=== PATIENT | female | born 1995 | race Caucasian/White ===

== ENCOUNTER 2019-12-18 21:36 | Emergency (ER) | payer BC ==
[~2019-12-18] VITALS: Ht 160 cm; Wt 50.9 kg
[2019-12-18 21:36] VITALS: BP 131/92
[2019-12-18] MEDS ORDERED: ORPH-16 PO (22:08)
--- NOTE | 2019-12-18 22:09 | PHYS DOC ---
Past History Past Medical History: Diabetes Past Surgical History: Appendectomy Alcohol Use: None General Adult EDM: Chief Complaint: BACK PAIN OR INJURY HPI: HPI: Patient is a [age] year old [sex] who presents with [] Review of Systems: Review of Systems: Constitutional: Denies fever or chills Eyes: Denies change in visual acuity HENT: Denies nasal congestion or sore throat Respiratory: Denies cough or shortness of breath Cardiovascular: Denies chest pain or edema GI: Denies abdominal pain, nausea, vomiting, bloody stools or diarrhea : Denies dysuria Musculoskeletal: Denies back pain or joint pain Integument: Denies rash Neurologic: Denies headache, focal weakness or sensory changes Endocrine: Denies polyuria or polydipsia Lymphatic: Denies swollen glands Psychiatric: Denies depression or anxiety Heart Score: Risk Factors: Risk Factors: DM, Current or recent (<one month) smoker, HTN, HLP, family history of CAD, obesity. Risk Scores: Score 0 - 3: 2.5% MACE over next 6 weeks - Discharge Home Score 4 - 6: 20.3% MACE over next 6 weeks - Admit for Clinical Observation Score 7 - 10: 72.7% MACE over next 6 weeks - Early Invasive Strategies Allergies: Allergies: Allergies Coded Allergies Type Severity Reaction Last Updated Verified Latex, Natural Rubber Allergy Severe Anaphylaxis 12/18/19 Yes azithromycin Allergy Severe Anaphylaxis 12/18/19 Yes meloxicam Allergy Severe Anaphylaxis 12/18/19 Yes Physical Exam: PE: Constitutional: Well developed, well nourished, no acute distress, non-toxic appearance. [] HENT: Normocephalic, atraumatic, bilateral external ears normal, oropharynx moist, no oral exudates, nose normal. [] Eyes: PERRLA, EOMI, conjunctiva normal, no discharge. [] Neck: Normal range of motion, no tenderness, supple, no stridor. [] Cardiovascular:Heart rate regular rhythm, no murmur [] Lungs & Thorax: Bilateral breath sounds clear to auscultation [] Abdomen: Bowel sounds normal, soft, no tenderness, no masses, no pulsatile masses. [] Skin: Warm, dry, no erythema, no rash. [] Back: No tenderness, no CVA tenderness. [] Extremities: No tenderness, no cyanosis, no clubbing, ROM intact, no edema. [] Neurologic: Alert and oriented X 3, normal motor function, normal sensory function, no focal deficits noted. [] Psychologic: Affect normal, judgement normal, mood normal. [] Current Patient Data: Labs: Laboratory Tests Test 12/18/19 22:05 POC Urine HCG, Qualitative hcg negative (Negative) Vital Signs: Vital Signs Date Time Temp Pulse Resp B/P (MAP) Pulse Ox O2 Delivery O2 Flow Rate FiO2 12/18/19 21:36 98.7 83 16 131/92 (105) 98 Room Air EKG: EKG: [] Radiology/Procedures: Radiology/Procedures: [] Course & Med Decision Making: Course & Med Decision Making Pertinent Labs and Imaging studies reviewed. (See chart for details) [] Dragon Disclaimer: Dragon Disclaimer: This electronic medical record was generated, in whole or in part, using a voice recognition dictation system. Departure Departure: Impression: Primary Impression: Back pain Qualified Codes: M54.41 - Lumbago with sciatica, right side Disposition: HOME/RESIDENCE PRIOR TO ADM Condition: STABLE Referrals: SHANTEL ARCHIBALD MD (PCP) Patient Instructions: Back Pain, Adult, [id number] Additional Instructions: Take over the counter Tylenol and/or Ibuprofen for pain or discomfort. ICE area 20 min on then leave off for next 20 mins. Repeat several times daily as needed for next few days. Call Patrick Dallas M.D. (pain management) for further evaluation and treatment. Call and make an appointment to be seen in next 3-5 days as needed. [id number] [facility], [address] [place], [place] [address] Scripts Orphenadrine Citrate (ORPHENADRINE CITRATE) 100 Mg Tablet.er 1 TAB PO BID PRN for MUSCLE PAIN, #14 TAB 0 Refills Prov: SALENA TANNER DO 12/18/19 Justification of Admission: Justification of Admission: Justification of Admission Dx: N/A SALENA TANNER DO Dec 18, 2019 22:09
[2019-12-18] MEDS ORDERED: ORPHENADRINE CITRATE 60 MG/2 ML VIAL. IM ONE (22:15)
[2019-12-18] MEDS ORDERED: DEXAMETHASONE 4 MG TABLET PO ONE (22:15)
[2019-12-18] MEDS ORDERED: HYDROcodone/APAP 5/325MG 1 TAB TABLET PO ONE (22:15)
[2019-12-18 22:28] LABS: BILIRUBIN,URINE NEG (NEG); CLARITY,URINE HAZY; COLOR,URINE YELLOW; GLUCOSE,URINE NEG (NEG)
[2019-12-18 22:29] LABS: BACTERIA,URINE MOD /HPF (0-FEW); NITRITE,URINE NEG (NEG); RBC,URINE OCC /HPF (0-2); SQUAMOUS EPITHELIAL CELL,UR MANY /LPF
== END 2019-12-18 22:32 | disposition home or self-care (01) ==
LOC: ER 21:36
DX: M54.41 Lumbago with sciatica, right side (principal); G89.29 Other chronic pain; E11.9 Type 2 diabetes mellitus without complications; Z90.89 Acquired absence of other organs; Z91.040 Latex allergy status; Z88.1 Allergy status to other antibiotic agents; Z88.8 Allergy status to other drugs, medicaments and biological substances
CPT/HCPCS: 81001; 81025; 87086; 96372; 99283; J2360; J8540

== ENCOUNTER 2020-01-06 10:27 | Emergency (ER) | payer BC ==
[~2020-01-06] VITALS: Ht 160 cm; Wt 50.9 kg
[~2020-01-06 10:27] MED LIST: ORPH-16 PO
[2020-01-06 10:37] VITALS: BP 117/70
--- NOTE | 2020-01-06 10:54 | PHYS DOC ---
Past History Past Medical History: Diabetes Past Surgical History: Appendectomy Alcohol Use: None Adult General Chief Complaint Chief Complaint: BACK PAIN OR INJURY [facility] HPI Patient is a 24-year-old female who presents for acute on chronic back pain. Patient was seen in our facility earlier this month and has been having this evaluated and worked up by her outpatient PCP ever since. She reports having recent imaging, specifically x-rays and CTs scan at [facility] where she was found to have bulging disc at L4-L5 and L5-L1 disc levels. Patient has been seen numerous times by her PCP and has been taking Lortab without relief, also admits to trialing muscle relaxer and high-dose NSAIDs. Patient presents today as she has continued radicular pain that originates in right lower back, radiates down posterior right butt cheek to right posterior knee. Pain described as electric and burning in nature. Denies any fever, denies any recent trauma, denies any IV drug use, saddle anesthesia, or changes in bladder or bowel function Review of Systems Review of Systems Fourteen body systems of review of systems have been reviewed. See HPI for pertinent positives and negative responses, other cummings all other systems are negative, non-pertinent or non-contributory Allergies Allergies Allergies Coded Allergies Type Severity Reaction Last Updated Verified Latex, Natural Rubber Allergy Severe Anaphylaxis 12/18/19 Yes azithromycin Allergy Severe Anaphylaxis 12/18/19 Yes meloxicam Allergy Severe Anaphylaxis 12/18/19 Yes Physical Exam Physical Exam Constitutional: Well developed, well nourished, no acute distress, non-toxic appearance. HENT: Normocephalic, atraumatic, bilateral external ears normal, oropharynx moist, no oral exudates, nose normal. Eyes: PERRLA, EOMI, conjunctiva normal, no discharge. Neck: Normal range of motion, no tenderness, supple, no stridor. Cardiovascular: Heart rate regular, sinus rhythm, no murmurs rubs or gallops Lungs & Thorax: Bilateral breath sounds clear to auscultation Abdomen: Bowel sounds normal, soft, no tenderness, no masses, no pulsatile masses. Nonsurgical abdomen, no peritoneal signs Skin: Warm, dry, no erythema, no rash. Back: No CVA tenderness. No midline tenderness to spinous process of cervical, thoracic, or lumbar spines. Tenderness to palpation of right paraspinal muscles. 2/4 reflexes of bilateral lower extremities. No saddle anesthesia, no gross deficits. Positive leg raise test on right lower extremity Extremities: No tenderness, no cyanosis, no clubbing, ROM intact, no edema. Neurologic: Alert and oriented X 3, grossly normal motor & sensory function, no focal deficits noted. Psychologic: Affect normal, judgement normal, mood normal. Current Patient Data Vital Signs Vital Signs Date Time Temp Pulse Resp B/P (MAP) Pulse Ox O2 Delivery O2 Flow Rate FiO2 01/06/20 10:37 97.9 81 18 117/70 (86) 96 EKG EKG [] Radiology/Procedures Radiology/Procedures [] Course & Med Decision Making Course & Med Decision Making Ambulatory patient seen on arrival ABCs unremarkable Comprehensive history and physical exam obtained Discussed recent course of medical care, given history and physical findings, I feel patient is suffering from acute lumbar radiculopathy type pain Patient has been on appropriate therapy, reports not being able to tolerate recently prescribed Lortab 10 as it makes her nauseous even with concomitant Zofran use Discussed trialing Riley 5 today, also discussed discharged home with prednisone burst and close PCP follow-up. Discussed likely need for physical therapy in outpatient setting Strict return precautions discussed with good understanding by patient, all questions and concerns addressed prior to departure home in stable condition Dragon Disclaimer Dragon Disclaimer This electronic medical record was generated, in whole or in part, using a voice recognition dictation system. Departure Departure: Impression: Primary Impression: Back pain Disposition: 01 HOME/RESIDENCE PRIOR TO ADM Condition: STABLE Referrals: SHANTEL ARCHIBALD MD (PCP) Patient Instructions: Lumbosacral Radiculopathy, Radicular Pain Scripts Prednisone (PREDNISONE) 20 Mg Tablet 40 MG PO DAILY for radicular pain for 4 Days, #8 TAB Prov: SHINE CUENCA DO 01/06/20 Justification of Admission: Justification of Admission: Justification of Admission Dx: N/A SHINE CUENCA DO Jan 06, 2020 10:54
[2020-01-06] MEDS ORDERED: HYDROcodone/APAP 5/325MG 1 TAB TABLET PO ONE (11:00)
[2020-01-06] MEDS ORDERED: PRED20TA PO (11:10)
[2020-01-06] MEDS ORDERED: predniSONE 10 MG TABLET PO ONE (11:15)
== END 2020-01-06 11:13 | disposition home or self-care (01) ==
LOC: ER 10:27
DX: G89.29 Other chronic pain (principal); M54.5 Low back pain; E11.9 Type 2 diabetes mellitus without complications; Z90.49 Acquired absence of other specified parts of digestive tract; Z91.040 Latex allergy status; Z88.1 Allergy status to other antibiotic agents; Z88.8 Allergy status to other drugs, medicaments and biological substances
CPT/HCPCS: 99283; J7512

== ENCOUNTER 2020-09-09 10:30 | Emergency (ER) | payer BC ==
[~2020-09-09] VITALS: Ht 160 cm; Wt 49.5 kg
[~2020-09-09 10:30] MED LIST changes: +PRED20TA PO
[2020-09-09] MEDS ORDERED: DIAZ5TAB4 PO (10:53)
[2020-09-09] MEDS ORDERED: PRED50TA PO (10:53)
--- NOTE | 2020-09-09 10:53 | PHYS DOC ---
Past History Past Medical History: No Pertinent History Past Surgical History: Appendectomy Alcohol Use: None General Adult EDM: Chief Complaint: BACK PAIN - NO INJURY HPI: HPI: 25-year-old female presents with low back pain. Patient has known bulging disks for which she sees pain management. She had a steroid injection which is worked very well for last couple months. 2 days ago, the patient bent over and then was unable to stand up. She developed pain in the usual area with some radiation down her right leg. She hoped that it would calm down. She has been taking naproxen which helps with the pain but does not make it go away. It comes back when it wears off. She has an appointment with her primary at the end of the week, but does not want to be in pain until then. Patient does not want narcotic pain medication. She has used diazepam in the past. She denies fever or chills. No new injuries or falls. Review of Systems: Review of Systems: Constitutional: Denies fever or chills Eyes: Denies change in visual acuity HENT: Denies nasal congestion or sore throat Respiratory: Denies cough or shortness of breath Cardiovascular: Denies chest pain or edema GI: Denies abdominal pain, nausea, vomiting, bloody stools or diarrhea : Denies dysuria Musculoskeletal: Lumbar back pain Integument: Denies rash Neurologic: Denies headache, focal weakness or sensory changes Endocrine: Denies polyuria or polydipsia Lymphatic: Denies swollen glands Psychiatric: Denies depression or anxiety Allergies: Allergies: Allergies Coded Allergies Type Severity Reaction Last Updated Verified Latex, Natural Rubber Allergy Severe Anaphylaxis 12/18/19 Yes azithromycin Allergy Severe Anaphylaxis 12/18/19 Yes meloxicam Allergy Severe Anaphylaxis 12/18/19 Yes Physical Exam: PE: Constitutional: Well developed, well nourished, no acute distress, non-toxic appearance. [] HENT: Normocephalic, atraumatic, bilateral external ears normal, oropharynx moist, no oral exudates, nose normal. [] Eyes: PERRLA, EOMI, conjunctiva normal, no discharge. [] Neck: Normal range of motion, no tenderness, supple, no stridor. [] Cardiovascular:Heart rate regular rhythm, no murmur [] Lungs & Thorax: Bilateral breath sounds clear to auscultation [] Abdomen: Bowel sounds normal, soft, no tenderness, no masses, no pulsatile masses. [] Skin: Warm, dry, no erythema, no rash. [] Back: No tenderness, no CVA tenderness. [] Extremities: No tenderness, no cyanosis, no clubbing, ROM intact, no edema. [] Neurologic: Alert and oriented X 3, normal motor function, normal sensory function, no focal deficits noted. [] Psychologic: Affect normal, judgement normal, mood normal. [] Current Patient Data: Vital Signs: Vital Signs Date Time Temp Pulse Resp B/P (MAP) Pulse Ox O2 Delivery O2 Flow Rate FiO2 09/09/20 10:40 98.2 101 16 141/88 (105) 98 Room Air EKG: EKG: [] Radiology/Procedures: Radiology/Procedures: [] Heart Score: C/O Chest Pain: N/A Risk Factors: Risk Factors: DM, Current or recent (<one month) smoker, HTN, HLP, family history of CAD, obesity. Risk Scores: Score 0 - 3: 2.5% MACE over next 6 weeks - Discharge Home Score 4 - 6: 20.3% MACE over next 6 weeks - Admit for Clinical Observation Score 7 - 10: 72.7% MACE over next 6 weeks - Early Invasive Strategies Course & Med Decision Making: Course & Med Decision Making Pertinent Labs and Imaging studies reviewed. (See chart for details) I reviewed the patient's narcotic database and she has not had a diazepam prescription since July. This is consistent with what she told me. She has recently gotten low dose clonazepam, but this appears to be for a different purpose from a behavioral health provider. I believe it is reasonable to do a short course of diazepam 5 mg as well as 3 days of prednisone. We will give the first dose of prednisone in the ED. She is stable for discharge at this time. [] Dragon Disclaimer: Dragon Disclaimer: This electronic medical record was generated, in whole or in part, using a voice recognition dictation system. Departure Departure: Impression: Primary Impression: Low back pain Qualified Codes: M54.41 - Lumbago with sciatica, right side; G89.29 - Other chronic pain Disposition: 01 HOME / SELF CARE / HOMELESS Condition: STABLE Referrals: JOSÉ DUMONT (PCP) Patient Instructions: Low Back Strain with [facility] Scripts Prednisone (PREDNISONE) 50 Mg Tablet 1 TAB PO DAILY for back pain, #2 TAB Prov: DAVID VAIL DO 09/09/20 Diazepam (DIAZEPAM) 5 Mg Tablet 5 MG PO BID for back pain for 5 Days, #10 TAB Prov: DAVID VAIL DO 09/09/20 DAVID VAIL DO September 09, 2020 10:53
[2020-09-09] MEDS ORDERED: predniSONE 10 MG TABLET PO ONE (11:00)
[2020-09-09 11:05] VITALS: BP 118/70
== END 2020-09-09 11:05 | disposition home or self-care (01) ==
LOC: ER 10:30
DX: M54.41 Lumbago with sciatica, right side (principal); G89.29 Other chronic pain; Z90.89 Acquired absence of other organs; Z91.040 Latex allergy status; Z88.1 Allergy status to other antibiotic agents
CPT/HCPCS: 99283; J7512

== ENCOUNTER 2020-10-31 10:59 | Emergency (ER) | payer BC ==
[~2020-10-31] VITALS: Ht 160 cm; Wt 50.0 kg
[~2020-10-31 10:59] MED LIST changes: +DIAZ5TAB4 PO; +PRED50TA PO
[2020-10-31 11:05] VITALS: BP 132/83
--- NOTE | 2020-10-31 11:40 | PHYS DOC ---
Past History Past Medical History: Other Additional Past Medical Histor: Chronic back pain Past Surgical History: Appendectomy Alcohol Use: None Adult General Chief Complaint Chief Complaint: BACK PAIN - NO INJURY HPI HPI Patient is a 25-year-old female presenting for acute on chronic back pain. Reports having sacral tight back pain with radiation into unilateral posterior right leg that started after of her first child. Reports exacerbation after of her second child. She has longstanding history of physical therapy and has been seeing pain management physician in outpatient setting. States her pain/symptoms have been well controlled with outpatient therapy that has included stretching, mostly supportive care, and infrequent steroid injections. Nonetheless, she does admit prior flares which she feels she is having today. Has history of requiring extremely short term benzodiazepine and Medrol Dosepak to control symptoms. Regarding current back pain, denies any recent red flags of back pain such as history of IV drug use, fever, weight loss, history of chronic steroid use, trauma, loss of bladder bowel function, saddle anesthesia etc. States she has been trying to utilize [id number] NSAIDs and Tylenol without significant relief in pain. Has primary care physician, [facility] on post but reports not being able to be seen in a timely fashion and so, patient presenting to our ER for evaluation Review of Systems Review of Systems Fourteen body systems of review of systems have been reviewed. See HPI for pertinent positives and negative responses, other cummings all other systems are negative, non-pertinent or non-contributory Allergies Allergies Allergies Coded Allergies Type Severity Reaction Last Updated Verified Latex, Natural Rubber Allergy Severe Anaphylaxis 10/31/20 Yes azithromycin Allergy Severe Anaphylaxis 10/31/20 Yes meloxicam Allergy Severe Anaphylaxis 10/31/20 Yes ibuprofen Allergy Unknown Swelling 10/31/20 Yes Physical Exam Physical Exam Constitutional: Well developed, well nourished, no acute distress, non-toxic appearance. HENT: Normocephalic, atraumatic, bilateral external ears normal, oropharynx moist, no oral exudates, nose normal. Eyes: PERRLA, EOMI, conjunctiva normal, no discharge. Neck: Normal range of motion, no tenderness, supple, no stridor. Cardiovascular: Heart rate regular per monitor Lungs & Thorax: No respiratory distress or accessory muscle use, bilateral chest rise Abdomen: Abdomen soft, non-tender, bowel sounds present in all quadrants, no guarding or rebound, nonacute abdomen. Skin: Warm, dry, no erythema, no rash. Back: No midline tenderness, no CVA tenderness. Positive straight leg raise to right lower leg, pain to palpation over bilateral sacral apexes Extremities: No tenderness, no cyanosis, no clubbing, ROM intact, no edema. Neurologic: Alert and oriented X 3, 2+ patellar reflexes in bilateral lower extremities, no saddle anesthesia, normal motor & sensory function, no focal deficits noted. Psychologic: Affect normal, judgement normal, mood normal. Current Patient Data Vital Signs Vital Signs Date Time Temp Pulse Resp B/P (MAP) Pulse Ox O2 Delivery O2 Flow Rate FiO2 10/31/20 11:05 97.1 86 18 132/83 (99) 100 EKG EKG [] Radiology/Procedures Radiology/Procedures [] Heart Score C/O Chest Pain: No Risk Factors: Risk Factors: DM, Current or recent (<one month) smoker, HTN, HLP, family history of CAD, obesity. Risk Scores: Risk Factors: DM, Current or recent (<one month) smoker, HTN, HLP, family history of CAD, obesity. Course & Med Decision Making Course & Med Decision Making Discussed with the patient all findings and diagnostic testing. I discussed most likely diagnosis of acute on chronic lower back pain. Joint decision to defer any imaging and/or further diagnostic work-up in ER setting given absence of any red flag signs or symptoms of back pain. Patient is knowledgeable on her diagnosis and supportive care factors, [employer] reviewed. Given symptoms and history I feel it is reasonable to administer short-term dose of diazepam and Medrol Dosepak with continued supportive care practices and outpatient follow-up advised. I stressed need for close outpatient follow-up to review today's ER visit. Strict return precautions were also discussed at length with good under standing by patient. Patient voiced understanding and agreement with the plan. Patient knows to come back for repeat evaluation if concerning signs or symptoms present prior to outpatient follow-up. Hemodynamically stable, ambulatory and well-appearing at time of disposition. Dragon Disclaimer Dragon Disclaimer This electronic medical record was generated, in whole or in part, using a voice recognition dictation system. Departure Departure: Impression: Primary Impression: Acute exacerbation of chronic low back pain Disposition: HOME / SELF CARE / HOMELESS Condition: STABLE Referrals: JOSÉ DUMONT (PCP) Patient Instructions: Back Exercises Additional Instructions: You were evaluated in the Emergency Department today for back pain. Your evaluation suggests no acute abnormalities which require further intervention at this time. Your pain is most likely due to to a musculoskeletal cause that should improve with supportive care. - Move around as tolerated but avoiding heavy lifting. ``Bed rest is not recommended nor is it the best treatment for low back pain. - Medications will help control your discomfort: - -Ibuprofen (800 mg every 8 hours for pain) with food. - -Tylenol - Do not drink alcohol, drive a car, operate machinery, or get up on ladders or heights when taking any prescribed pain medications. - Do not drive home if you received prescribed pain medications here in the ED. Return to the ED immediately if you develop any of the following problems: - Leaking urine or difficulty urinating; - Inability to control your bowels; - New numbness or weakness in your legs or numbness between your legs; - Inability to walk - Fever Scripts Methylprednisolone (MEDROL) 4 Mg Tab.ds.pk 1 PKG PO UD for LOW BACK PAIN, #1 PKG Prov: SHINE CUENCA DO 10/31/20 Diazepam (DIAZEPAM) 5 Mg Tablet 5 MG PO TID for LOW BACK PAIN, #10 TAB Prov: SHINE CUENCA DO 10/31/20 SHINE CUENCA DO Oct 31, 2020 11:40
[2020-10-31] MEDS ORDERED: METH4TAB2 PO (11:56)
[2020-10-31] MEDS ORDERED: DIAZ5TAB4 PO (11:56)
[2020-10-31] MEDS ORDERED: KETOROLAC 30 MG/ML VIAL. ONE (11:59)
[2020-10-31] MEDS ORDERED: KETOROLAC 60 MG/2 ML VIAL. IM ONE (12:00)
[2020-10-31] MEDS ORDERED: KETOROLAC 30 MG/ML VIAL. IM ONE (12:15)
== END 2020-10-31 12:22 | disposition home or self-care (01) ==
LOC: ER 10:59
DX: G89.29 Other chronic pain (principal); M54.5 Low back pain; Z88.1 Allergy status to other antibiotic agents; Z88.6 Allergy status to analgesic agent
CPT/HCPCS: 96372; 99283; J1885

== ENCOUNTER 2020-11-05 18:45 | Emergency (ER) | payer BC ==
[~2020-11-05] VITALS: Ht 157.5 cm; Wt 50.0 kg
[~2020-11-05 18:45] MED LIST changes: +METH4TAB2 PO
[2020-11-05] MEDS ORDERED: MORPHINE SULFATE 2 MG/ML DISP.SYRIN. IM ONE (19:00)
[2020-11-05] MEDS ORDERED: IOHEXOL 300 MG/ML 75 ML VIAL. IV ONE (19:00)
[2020-11-05] MEDS ORDERED: MORPHINE SULFATE 4 MG/ML DISP.SYRIN. IM ONE (19:00)
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
[2020-11-05] MEDS ORDERED: HYDROcodone/APAP 5/325MG 1 TAB TABLET PO ONE (20:15)
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
[2020-11-05 20:26] VITALS: BP 103/66
== END 2020-11-05 20:31 | disposition home or self-care (01) ==
LOC: ER 18:45
DX: S13.4XXA Sprain of ligaments of cervical spine, initial encounter (principal); S39.92XA Unspecified injury of lower back, initial encounter; R51.9 Headache, unspecified; G89.29 Other chronic pain; Z90.89 Acquired absence of other organs; Z91.040 Latex allergy status; Z88.1 Allergy status to other antibiotic agents; Z88.6 Allergy status to analgesic agent; V43.52XA Car driver injured in collision with other type car in traffic accident, initial encounter; Y93.I9 Activity, other involving external motion; Y92.488 Other paved roadways as the place of occurrence of the external cause; Y99.8 Other external cause status
CPT/HCPCS: 70450; 72125; 72128; 74177; 96372; 96374; J2270; Q9967; 99285-25

== ENCOUNTER 2020-11-30 14:15 | Emergency (ER) | payer BC, OTHER ==
[~2020-11-30] VITALS: Ht 157.5 cm; Wt 50.0 kg
[2020-11-30 14:45] VITALS: BP 126/72
--- NOTE | 2020-11-30 14:59 | PHYS DOC ---
Past History Past Medical History: Other Additional Past Medical Histor: Chronic back pain Past Surgical History: No Surgical History Alcohol Use: None General Adult EDM: Chief Complaint: PSYCH EVALUATION HPI: HPI: Patient is a 25-year-old female presenting via EMS for a "psych evaluation". Patient is unsure of who called the EMS for suspect this is her . Patient denies any suicidal homicidal ideation. She states that today she found out she was going to getting a divorce from patient states she in the heat of argument states she kill her self but says it she did not mean that and she does not have any suicidal ideations. Has a history of OCD, PTSD, and depression. Patient denies any previous history of suicide attempts or self-harm. Does not take any medications. Patient is alert and oriented and acting appropriately. She states that she is under a lot of stress. Review of Systems: Review of Systems: All other systems within normal limits except for as noted in the HPI Allergies: Allergies: Allergies Coded Allergies Type Severity Reaction Last Updated Verified Latex, Natural Rubber Allergy Severe Anaphylaxis 10/31/20 Yes azithromycin Allergy Severe Anaphylaxis 10/31/20 Yes meloxicam Allergy Severe Anaphylaxis 10/31/20 Yes ibuprofen Allergy Unknown Swelling 10/31/20 Yes Physical Exam: PE: Constitutional: Well developed, well nourished, no acute distress, non-toxic appearance. [] HENT: Normocephalic, atraumatic, bilateral external ears normal, nose normal. [] Eyes: PERRLA, conjunctiva normal, no discharge. [] Neck: No rigidity, supple, no stridor. [] Cardiovascular: Regular rate and rhythm, brisk cap refill [] Lungs & Thorax: Non labored symmetric respirations, no tachypnea or respiratory distress [] Abdomen: Soft, nondistended. Skin: Warm, dry, no erythema, no rash. [] Back: Unremarkable Extremities: No deformities, range of motion grossly intact, no lower extremity edema [] Neurologic: Alert and oriented X 3, no focal deficits noted. [] Psychologic: Affect normal, judgement normal, mood normal. [] Current Patient Data: Vital Signs: Vital Signs Date Time Temp Pulse Resp B/P (MAP) Pulse Ox O2 Delivery O2 Flow Rate FiO2 11/30/20 14:45 99.0 77 20 126/72 97 EKG: EKG: [] Radiology/Procedures: Radiology/Procedures: [] Heart Score: C/O Chest Pain: No Risk Factors: Risk Factors: DM, Current or recent (<one month) smoker, HTN, HLP, family history of CAD, obesity. Risk Scores: Score 0 - 3: 2.5% MACE over next 6 weeks - Discharge Home Score 4 - 6: 20.3% MACE over next 6 weeks - Admit for Clinical Observation Score 7 - 10: 72.7% MACE over next 6 weeks - Early Invasive Strategies Course & Med Decision Making: Course & Med Decision Making Offered PAT evaluation, patient initially thought about but then declined. Did except information for follow-up with the guidance Center if she feels like she needs it. Dragon Disclaimer: Dragon Disclaimer: This electronic medical record was generated, in whole or in part, using a voice recognition dictation system. Departure Departure: Impression: Primary Impression: No abnormality detected on mental health assessment Disposition: HOME / SELF CARE / HOMELESS Condition: STABLE Referrals: JOSÉ DUMONT (PCP) Patient Instructions: Medical Screening Exam BRENNEN ASHTON MD Nov 30, 2020 14:59
== END 2020-11-30 15:16 | disposition home or self-care (01) ==
LOC: ER 14:15
DX: Z13.39 Encounter for screening examination for other mental health and behavioral disorders (principal); G89.29 Other chronic pain; Z91.040 Latex allergy status; Z88.1 Allergy status to other antibiotic agents; Z88.6 Allergy status to analgesic agent
CPT/HCPCS: 99283

== ENCOUNTER 2021-02-11 18:29 | Emergency (ER) | payer BC ==
[~2021-02-11] VITALS: Ht 157.5 cm; Wt 47.0 kg
[2021-02-11 18:29] VITALS: BP 159/79
[2021-02-11] MEDS ORDERED: DEXAMETHASONE SOD PHOS 10 MG/ML VIAL. IM ONE (19:00)
[2021-02-11] MEDS ORDERED: diazePAM 5 MG TABLET. PO ONE (19:00)
[2021-02-11] MEDS ORDERED: LIDO700A21 TP (19:03)
[2021-02-11] MEDS ORDERED: PRED20TA PO (19:03)
[2021-02-11] MEDS ORDERED: DIAZ5TAB PO (19:03)
--- NOTE | 2021-02-11 19:04 | PHYS DOC ---
Past History Past Medical History: Other Additional Past Medical Histor: Chronic back pain Past Surgical History: No Surgical History Smoking: Non-smoker Alcohol Use: None Drug Use: None General Adult EDM: Chief Complaint: BACK PAIN OR INJURY HPI: HPI: 25-year-old female presents with report of low back pain with some radiation down right leg which has been ongoing for the past 4 days. Patient reports history of chronic back pain secondary to a "bulging disc ". Patient reports pain similar to prior episodes. Patient reports has been trying to take [id number] remedies without significant improvement. Patient denies loss of bowel or bladder. Denies fever or chills. Denies dysuria or hematuria. Denies . Denies rash. Review of Systems: Review of Systems: Constitutional: Denies fever or chills Eyes: Denies redness or eye pain HENT: Denies nasal congestion or sore throat Respiratory: Denies cough or shortness of breath Cardiovascular: Denies chest pain or palpitations GI: Denies abdominal pain, nausea, or vomiting : Denies dysuria or hematuria Musculoskeletal: Reports low back pain with radiation down right leg Integument: Denies rash or skin lesions Neurologic: Denies headache, focal weakness or sensory changes Complete systems were reviewed and found to be within normal limits, except as documented in this note. Allergies: Allergies: Allergies Coded Allergies Type Severity Reaction Last Updated Verified Latex, Natural Rubber Allergy Severe Anaphylaxis 10/31/20 Yes azithromycin Allergy Severe Anaphylaxis 10/31/20 Yes meloxicam Allergy Severe Anaphylaxis 10/31/20 Yes ibuprofen Allergy Unknown Swelling 10/31/20 Yes Physical Exam: PE: Constitutional: Well developed, well nourished, no acute distress, non-toxic appearance HENT: Normocephalic, atraumatic Eyes: Conjunctiva normal, no discharge Neck: Normal range of motion, supple Lungs & Thorax: No respiratory distress, equal chest rise and fall Abdomen: Soft, no tenderness Skin: Warm, dry, no erythema, no rash Back: No midline tenderness, right low lumbar tenderness on palpation, pain with straight leg raise of right leg no CVA tenderness Extremities: No tenderness, ROM intact, no edema Neurologic: Alert and oriented X 3, no focal deficits noted Psychologic: Affect normal, judgment normal EKG: EKG: [] Radiology/Procedures: Radiology/Procedures: [] Heart Score: C/O Chest Pain: N/A Course & Med Decision Making: Course & Med Decision Making Patient presents with HPI and physical exam consistent for acute on chronic back pain. No history of trauma. No midline tenderness noted. Denies loss of bowel or bladder. Symptomatic treatment provided. Patient stable for discharge with outpatient follow-up with PCP/pain management. Pain management referral provided. Discussed findings and plan with patient, who acknowledges understanding and agreement. Pili Disclaimer: Dragbrionna Disclaimer: This electronic medical record was generated, in whole or in part, using a voice recognition dictation system. 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 Patrick Dallas [address], [address] [place] [address] Scripts Lidocaine (Lidocaine PATCH ) 1 Each Adh..patch 1 EACH TP DAILY for FOR LOCAL PAIN, #30 PATCH REMOVE AFTER 12 HOURS Prov: SALENA TANNER DO 02/11/21 Prednisone (PREDNISONE) 20 Mg Tablet 2 TAB PO DAILY for Back pain, #8 TAB Start this prescription tomorrow, Wednesday02/12/21 Prov: SALENA TANNER DO 02/11/21 Diazepam (VALIUM) 5 Mg Tablet 5 MG PO TID PRN for MUSCLE SPASMS, #14 TAB Prov: SALENA TANNER DO 02/11/21 SALENA TANNER DO Feb 11, 2021 19:04
== END 2021-02-11 19:31 | disposition home or self-care (01) ==
LOC: ER 18:29
DX: G89.29 Other chronic pain (principal); M54.50 Low back pain, unspecified; Z91.040 Latex allergy status; Z88.1 Allergy status to other antibiotic agents; Z88.6 Allergy status to analgesic agent
CPT/HCPCS: 96372; 99283; J1100

== ENCOUNTER 2021-02-13 18:01 | Emergency (ER) | payer BC ==
[~2021-02-13] VITALS: Ht 157.5 cm; Wt 47.0 kg
[~2021-02-13 18:01] MED LIST changes: +DIAZ5TAB PO; +LIDO700A21 TP
[2021-02-13 20:15] VITALS: BP 149/91
[2021-02-13] MEDS ORDERED: ORPHENADRINE CITRATE 60 MG/2 ML VIAL. IM ONE (20:15)
[2021-02-13] MEDS ORDERED: KETOROLAC 15 MG/ML VIAL. IM ONE (20:15)
--- NOTE | 2021-02-13 20:21 | PHYS DOC ---
Past History Past Medical History: Other Additional Past Medical Histor: Chronic back pain (CINDI DIAS) Past Surgical History: No Surgical History (CINDI DIAS) Smoking: Non-smoker Alcohol Use: None Drug Use: None (CINDI DIAS) General Adult EDM: Chief Complaint: LOWER BACK PAIN OR INJURY HPI: HPI: Patient is a 25 year old female with chronic back pain who presents with continued acute exacerbation. Patient was seen in the emergency department 2 days ago with the same complaints. She states that while she felt somewhat better yesterday, overnight her symptoms worsened. She states that she last took naproxen and diazepam at 1100 this morning. She has constant pain at rest, which is exacerbated by movement and laying down flat. She denies saddle paresthesias, incontinence, lower extremity pain. Patient has no other complaints at this time (CINDI DIAS) Review of Systems: Review of Systems: ROS negative except as mentioned in HPI. (CINDI DIAS) Current Medications: Current Meds: Current Medications Medications (Trade) Dose Ordered Sig/Ander Start Time Stop Time Status Last Admin Dose Admin Ketorolac Tromethamine (Toradol 15mg Vial) 15 mg 1X ONCE 02/13/21 20:15 02/13/21 20:16 UNV Orphenadrine Citrate (Norflex) 60 mg 1X ONCE 02/13/21 20:15 02/13/21 20:16 UNV (CINDI DIAS) Allergies: Allergies: Allergies Coded Allergies Type Severity Reaction Last Updated Verified Latex, Natural Rubber Allergy Severe Anaphylaxis 10/31/20 Yes azithromycin Allergy Severe Anaphylaxis 10/31/20 Yes meloxicam Allergy Severe Anaphylaxis 10/31/20 Yes ibuprofen Allergy Unknown Swelling 10/31/20 Yes (CINDI DIAS) Physical Exam: PE: Constitutional: Patient winces with movement and makes it very clear she is in pain. Well developed, well nourished, non-toxic appearance. Cardiovascular: Heart rate regular rhythm, no murmur. Lungs & Thorax: Bilateral breath sounds clear to auscultation. Back: Paraspinal tenderness noted to lumbar spine bilaterally. No step-offs, no bony tenderness, no CVA tenderness. Extremities: No tenderness, no cyanosis, no clubbing, ROM intact, no edema. Neurologic: Alert and oriented x3, normal motor function, normal sensory function, no focal deficits noted. (CINDI DIAS) Current Patient Data: Vital Signs: Vital Signs Date Time Temp Pulse Resp B/P (MAP) Pulse Ox O2 Delivery O2 Flow Rate FiO2 02/13/21 18:35 98.1 84 16 122/71 (88) 99 (CINDI DIAS) Heart Score: C/O Chest Pain: No (CINDI DIAS) Course & Med Decision Making: Course & Med Decision Making Pertinent Labs and Imaging studies reviewed. (See chart for details) Patient states she is well-known to the department, and saw Dr. Tavera on her previous visit 2 days ago. At this time, a ketorolac as well as Norflex injection will be provided. Patient asked nursing staff to come in the room and demanded for discharge paperwork because her at bedside needed to be back to work within the next 7 minutes. Discharge paperwork was provided at that time. (CINDI DIAS) Dragon Disclaimer: Dragon Disclaimer: This electronic medical record was generated, in whole or in part, using a voice recognition dictation system. (CINDI DIAS) Departure Departure: Impression: Primary Impression: Acute exacerbation of chronic low back pain Disposition: HOME / SELF CARE / HOMELESS Condition: STABLE Referrals: JOSÉ DUMONT (PCP) Patient Instructions: Back Exercises, [id number], Back Injury Prevention, [id number], Back Pain, Adult, [id number], Chronic Back Pain Attending Signature Attending Signature I have participated in the care of this patient and I have reviewed and agree with all pertinent clinical information above including history, exam, and recommendations. (LOIDA BAILEY MD) CINDI DIAS Feb 13, 2021 20:21 LOIDA BAILEY MD Feb 17, 2021 18:59
[2021-02-13] MEDS ORDERED: ORPHENADRINE CITRATE 60 MG/2 ML VIAL. ONE (20:26)
[2021-02-13] MEDS ORDERED: KETOROLAC 15 MG/ML VIAL. ONE (20:26)
== END 2021-02-13 20:36 | disposition home or self-care (01) ==
LOC: ER 18:01
DX: G89.29 Other chronic pain (principal); M54.59 Other low back pain
CPT/HCPCS: 96372; 99284; J1885; J2360

== ENCOUNTER 2021-07-29 09:04 | Emergency (ER) | payer BC ==
[~2021-07-29] VITALS: Ht 157.5 cm; Wt 47.0 kg
[2021-07-29] MEDS ORDERED: PRED-220 PO (09:45)
[2021-07-29] MEDS ORDERED: DIAZ5TAB PO (09:45)
[2021-07-29] MEDS ORDERED: methylPREDNISolone SOD SUCC PF 125 MG/2 ML VIAL. IM ONE (09:45)
--- NOTE | 2021-07-29 09:49 | PHYS DOC ---
Past History Past Medical History: Other Additional Past Medical Histor: Chronic back pain Past Surgical History: No Surgical History Smoking: Non-smoker Alcohol Use: None Drug Use: None General Adult EDM: Chief Complaint: BACK PAIN OR INJURY HPI: HPI: 26-year-old female presents with low back pain. 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 She has intermittent pain in this area managed with [id number] medications. The patient was having sexual intercourse with her 2 days ago and something happened where she had significant pain. It has not gone away. She describes it as a tight stretching sensation. She denies any numbness or tingling in her legs or perineum. She has been treated with steroids and Valium in the past with success. She has no other complaints this time. Review of Systems: Review of Systems: Constitutional: Denies fever or chills Eyes: Denies change in visual acuity HENT: Denies nasal congestion or sore throat Respiratory: Denies cough or shortness of breath Cardiovascular: Denies chest pain or edema GI: Denies abdominal pain, nausea, vomiting, bloody stools or diarrhea : Denies dysuria Musculoskeletal: Low back pain Integument: Denies rash Neurologic: Denies headache, focal weakness or sensory changes Endocrine: Denies polyuria or polydipsia Lymphatic: Denies swollen glands Psychiatric: Denies depression or anxiety Allergies: Allergies: Allergies Coded Allergies Type Severity Reaction Last Updated Verified Latex, Natural Rubber Allergy Severe Anaphylaxis 10/31/20 Yes azithromycin Allergy Severe Anaphylaxis 10/31/20 Yes meloxicam Allergy Severe Anaphylaxis 10/31/20 Yes ibuprofen Allergy Unknown Swelling 10/31/20 Yes Physical Exam: PE: Constitutional: Well developed, well nourished, no acute distress, non-toxic appearance. [] HENT: Normocephalic, atraumatic, bilateral external ears normal, oropharynx moist, no oral exudates, nose normal. [] Eyes: PERRLA, EOMI, conjunctiva normal, no discharge. [] Neck: Normal range of motion, no tenderness, supple, no stridor. [] Cardiovascular: Heart rate regular rhythm, no murmur [] Lungs & Thorax: Bilateral breath sounds clear to auscultation [] Abdomen: Bowel sounds normal, soft, no tenderness, no masses, no pulsatile masses. [] Skin: Warm, dry, no erythema, no rash. [] Back: Lower lumbar muscle spasm bilaterally, tenderness right lower lumbar around L5, S1 [] Extremities: No tenderness, no cyanosis, no clubbing, ROM intact, no edema. [] Neurologic: Alert and oriented X 3, normal motor function, normal sensory function, no focal deficits noted. [] Psychologic: Affect normal, judgement normal, mood normal. [] Current Patient Data: Vital Signs: Vital Signs Date Time Temp Pulse Resp B/P (MAP) Pulse Ox O2 Delivery O2 Flow Rate FiO2 07/29/21 09:13 98.3 100 16 138/93 (108) 100 Room Air EKG: EKG: [] Radiology/Procedures: Radiology/Procedures: [] Heart Score: C/O Chest Pain: N/A Risk Factors: Risk Factors: DM, Current or recent (<one month) smoker, HTN, HLP, family history of CAD, obesity. Risk Scores: Score 0 - 3: 2.5% MACE over next 6 weeks - Discharge Home Score 4 - 6: 20.3% MACE over next 6 weeks - Admit for Clinical Observation Score 7 - 10: 72.7% MACE over next 6 weeks - Early Invasive Strategies Course & Med Decision Making: Course & Med Decision Making Pertinent Labs and Imaging studies reviewed. (See chart for details) The patient has been using heat at home. I advised her that she should switch to using icing given this is an inflammatory process. I will treat her with an injection of steroids here followed by a prescription for home. I will also give her 2 days of Valium 5 mg tablets. She is stable for discharge at this time. [] Pili Disclaimer: Pili Disclaimer: This electronic medical record was generated, in whole or in part, using a voice recognition dictation system. Departure Departure: Impression: Primary Impression: Lumbar back pain Disposition: HOME / SELF CARE / HOMELESS Condition: STABLE Referrals: JOSÉ DUMONT (PCP) Patient Instructions: Low Back Strain with [facility] Scripts Diazepam (VALIUM) 5 Mg Tablet 5 MG PO TID PRN for MUSCLE SPASMS for 2 Days, #6 TAB Prov: DAVID VAIL DO 07/29/21 Prednisone (PREDNISONE) 10 Mg Tablet 40 MG PO DAILY for low back pain for 4 Days, #16 TAB start 07/30/21 Prov: DAVID VAIL DO 07/29/21 DAVID VAIL DO Jul 29, 2021 09:49
== END 2021-07-29 10:06 | disposition home or self-care (01) ==
LOC: ER 09:04
DX: M54.59 Other low back pain (principal); G89.29 Other chronic pain; Z91.040 Latex allergy status; Z88.1 Allergy status to other antibiotic agents; Z88.8 Allergy status to other drugs, medicaments and biological substances; Z88.6 Allergy status to analgesic agent
CPT/HCPCS: 96372; 99283; J2930